=== PATIENT | male | born 1965 | race Two or more races ===

== ENCOUNTER 2019-03-01 17:54 | Inpatient (IN) | payer SELFPAY ==
[~2019-03-01] VITALS: Ht 180.3 cm; Wt 108.2 kg
[2019-03-01] MEDS ORDERED: MECLIZINE HCL 12.5 MG TABLET. PO ONE (20:00)
[2019-03-01] MEDS ORDERED: IV NORMAL SALINE 1000ML BAG 1,000 ML IV ONE (20:00)
[2019-03-01 20:05] LABS: BILIRUBIN,URINE NEGATIVE (NEG); CLARITY,URINE CLOUDY; COLOR,URINE YELLOW; NITRITE,URINE NEGATIVE (NEG); PH,URINE 5.5; PROTEIN,URINE NEGATIVE (NEG-TRACE); UROBILINOGEN,URINE 0.2 mg/dL (0.2 mg/dL)
[2019-03-01 20:14] LABS: BACTERIA,URINE 0 /HPF (0-FEW); RBC,URINE RARE /HPF (0-2); SQUAMOUS EPITHELIAL CELL,UR OCC /LPF; WBC,URINE 20-40 /HPF (0-4)
[2019-03-01 20:27] LABS: CALCIUM 9.2 mg/dL (8.5-10.1); CREATININE 1.8 mg/dL (0.7-1.3); GFR 39.8; POTASSIUM 4.3 mmol/L (3.5-5.1)
[2019-03-01 20:29] LABS: BASO # 0.1 x10^3/uL (0.0-0.2); BASO % 1 % (0-3); EOS # 0.3 x10^3/uL (0.0-0.7); EOS % 3 % (0-3); HEMOGLOBIN 12.6 g/dL (13.0-17.5); LYMPH # 1.6 x10^3/uL (1.0-4.8); LYMPH % 15 % (24-48); MEAN CORPUSCULAR HEMOGLOBIN 28 pg (25-35); MEAN CORPUSCULAR HGB CONC 34 g/dL (31-37); MEAN CORPUSCULAR VOLUME 82 fL (79-100); MONO # 1.2 x10^3/uL (0.0-1.1); MONO % 11 % (0-9); NEUT # 7.9 x10^3uL (1.8-7.7); NEUT % 71 % (31-73); PLATELET COUNT 289 x10^3/uL (140-400); RED CELL DISTRIBUTION WIDTH 14.7 % (11.5-14.5); WHITE BLOOD COUNT 11.1 x10^3/uL (4.0-11.0)
[2019-03-01 20:33] LABS: ALBUMIN 3.2 g/dL (3.4-5.0); ALBUMIN/GLOBULIN RATIO 0.7 (1.0-1.7); TOTAL BILIRUBIN 0.5 mg/dL (0.2-1.0)
--- NOTE | 2019-03-01 20:51 | PHYS DOC ---
Past Medical History Past Medical History: No Pertinent History (NARENDRA MEEHAN APRN) Past Surgical History: No Surgical History (NARENDRA MEEHAN APRN) Alcohol Use: Rarely Drug Use: None (NARENDRA MEEHAN APRN) Adult General Chief Complaint Chief Complaint: URINARY RETENTION HPI HPI Patient is a 53 year old male presents to the ER with dysuria this been ongoing for 2 days. The patient also has multiple other medical complaints. The patient states he has been having headache, abdominal pain, dizziness (he describes the room spinning), has also been running a fever but has been afebrile since Monday, and is also been having bilateral ear ringing. He also states that he's been having urinary retention and states that when he uses the past bathroom it hurts and he feels that he is not getting all of his urine out. States she's having 5 out of 10 pain. No interventions at home except he was placed on amoxicillin. (NARENDRA MEEHAN APRN) Review of Systems Review of Systems Constitutional: Denies fever or chills [] Eyes: Denies change in visual acuity, left eye redness, or eye pain [] HENT: Denies nasal congestion or sore throat [] Respiratory: Denies cough or shortness of breath [] Cardiovascular: No additional information not addressed in HPI [] GI: Reports abdominal pain denies nausea, vomiting, bloody stools or diarrhea [] : Reports urinary retention and dysuria denies hematuria [] Musculoskeletal: Denies back pain or joint pain [] Integument: Denies rash or skin lesions [] Neurologic: Reports headache and dizziness, Denies focal weakness or sensory changes [] Complete systems were reviewed and found to be within normal limits, except as documented in this note. (NARENDRA MEEHAN APRN) Current Medications Current Medications Current Medications Medications (Trade) Dose Ordered Sig/Maria Dolores Start Time Stop Time Status Last Admin Dose Admin Ceftriaxone Sodium (Rocephin) 1 gm 1X ONCE 03/01/19 21:15 03/01/19 21:16 DC 03/01/19 21:21 1 GM Meclizine HCl (Antivert) 25 mg 1X ONCE 03/01/19 20:00 03/01/19 20:04 DC 03/01/19 20:20 25 MG Sodium Chloride 1,000 ml @ 1,000 mls/hr 1X ONCE 03/01/19 20:00 03/01/19 20:59 DC 03/01/19 20:20 1,000 MLS/HR (NARENDRA RIGGS DO) Allergies Allergies Allergies Coded Allergies Type Severity Reaction Last Updated Verified No Known Drug Allergies 03/01/19 No (NARENDRA RIGGS DO) Physical Exam Physical Exam Constitutional: Well developed, well nourished, no acute distress, non-toxic appearance. [] HENT: Normocephalic, atraumatic, bilateral external ears normal, oropharynx moist, no oral exudates, nose normal. [] Eyes: PERRLA, EOMI, conjunctiva in left eye is red, no discharge. [] Neck: Normal range of motion, no tenderness, supple, no stridor. [] Cardiovascular:Heart rate regular rhythm, no murmur [] Lungs & Thorax: Bilateral breath sounds clear to auscultation [] Abdomen: Bowel sounds normal, soft, diffuse tenderness, no masses, no pulsatile masses. [] Skin: Warm, dry, no erythema, no rash. [] Back: No tenderness, no CVA tenderness. [] Extremities: No tenderness, no cyanosis, no clubbing, ROM intact, no edema. [] Neurologic: Alert and oriented X 3, negative romberg test, negative cathi-hallpike test. Psychologic: Affect normal, judgement normal, mood normal. [] (NARENDRA MEEHAN APRN) Current Patient Data Vital Signs Vital Signs Date Time Temp Pulse Resp B/P (MAP) Pulse Ox O2 Delivery O2 Flow Rate FiO2 03/01/19 20:30 68 96 03/01/19 19:15 98.1 16 171/95 (120) Room Air 98.1 (NARENDRA RIGGS DO) Lab Values Laboratory Tests Test 03/01/19 19:37 03/01/19 19:51 White Blood Count 11.1 x10^3/uL (4.0-11.0) H Red Blood Count 4.50 x10^6/uL (4.30-5.70) Hemoglobin 12.6 g/dL (13.0-17.5) L Hematocrit 37.0 % (39.0-53.0) L Mean Corpuscular Volume 82 fL (79-100) Mean Corpuscular Hemoglobin 28 pg (25-35) Mean Corpuscular Hemoglobin Concent 34 g/dL (31-37) Red Cell Distribution Width 14.7 % (11.5-14.5) H Platelet Count 289 x10^3/uL (140-400) Neutrophils (%) (Auto) 71 % (31-73) Lymphocytes (%) (Auto) 15 % (24-48) L Monocytes (%) (Auto) 11 % (0-9) H Eosinophils (%) (Auto) 3 % (0-3) Basophils (%) (Auto) 1 % (0-3) Neutrophils # (Auto) 7.9 x10^3uL (1.8-7.7) H Lymphocytes # (Auto) 1.6 x10^3/uL (1.0-4.8) Monocytes # (Auto) 1.2 x10^3/uL (0.0-1.1) H Eosinophils # (Auto) 0.3 x10^3/uL (0.0-0.7) Basophils # (Auto) 0.1 x10^3/uL (0.0-0.2) Sodium Level 135 mmol/L (136-145) L Potassium Level 4.3 mmol/L (3.5-5.1) Chloride Level 100 mmol/L (98-107) Carbon Dioxide Level 23 mmol/L (21-32) Anion Gap 12 (6-14) Blood Urea Nitrogen 33 mg/dL (8-26) H Creatinine 1.8 mg/dL (0.7-1.3) H Estimated GFR (Cockcroft-Gault) 39.8 BUN/Creatinine Ratio 18 (6-20) Glucose Level 119 mg/dL (70-99) H Calcium Level 9.2 mg/dL (8.5-10.1) Total Bilirubin 0.5 mg/dL (0.2-1.0) Aspartate Amino Transferase (AST) 90 U/L (15-37) H Alanine Aminotransferase (ALT) 113 U/L (16-63) H Alkaline Phosphatase 397 U/L (46-116) H Total Protein 8.0 g/dL (6.4-8.2) Albumin 3.2 g/dL (3.4-5.0) L Albumin/Globulin Ratio 0.7 (1.0-1.7) L Lipase 178 U/L (73-393) Urine Color Yellow Urine Clarity Cloudy Urine pH 5.5 Urine Specific [place] 1.015 Urine Protein Negative mg/dL (NEG-TRACE) Urine Glucose (UA) Negative mg/dL (NEG) Urine Ketones (Stick) Negative mg/dL (NEG) Urine Blood Trace (NEG) Urine Nitrite Negative (NEG) Urine Bilirubin Negative (NEG) Urine Urobilinogen Dipstick 0.2 mg/dL (0.2 mg/dL) Urine Leukocyte Esterase Large (NEG) Urine RBC Rare /HPF (0-2) Urine WBC 20-40 /HPF (0-4) Urine Squamous Epithelial Cells Occ /LPF Urine Bacteria 0 /HPF (0-FEW) Laboratory Tests 03/01/19 19:37 Laboratory Tests 03/01/19 19:37 (NARENDRA RIGGS DO) EKG EKG [] (NARENDRA MEEHAN APRN) Radiology/Procedures Radiology/Procedures PATIENT: AARON CELESTE ACCOUNT: [id number] : 1965 LOCATION: [address] [place] [address] AGE: 53 SEX: M EXAM STATUS: ADM IN ORD. PHYSICIAN: NARENDRA MEEHAN APRN REASON: abd pain, elevated liver enzymes PROCEDURE: ABDOMEN LTD Ultrasound of the right upper quadrant of the abdomen 03/01/2019 CLINICAL HISTORY: Abdominal pain. Elevated liver function tests. TECHNIQUE: A real-time ultrasound examination of the right upper quadrant of the abdomen was performed. Multiple images were obtained. FINDINGS: Comparison is made to the patient's CT scan of the abdomen performed earlier today. The gallbladder is well-distended. No gallstones are visualized. The gallbladder wall thickness is within normal limits. The common bile duct measures 3 mm in diameter which is within normal limits. The liver is mildly enlarged measuring 20 cm in length. Increased echogenicity of the liver parenchyma is seen consistent with fatty infiltration. No focal abnormality of the liver is seen. The visualized portions of pancreas and right kidney are within normal limits. No free fluid is seen. IMPRESSION: Mild hepatomegaly with fatty infiltration of the liver. Otherwise negative study. Electronically signed by: Ken Alfaro MD (03/01/2019 10:58 PM) [facility] [] PATIENT: AARON CELESTE ACCOUNT: [id number] : 1965 LOCATION: ER AGE: 53 SEX: M EXAM STATUS: REG ER ORD. PHYSICIAN: NARENDRA MEEHAN APRN REASON: abd pain, URINARY RETENTION. PROCEDURE: CT ABDOMEN PELVIS WO CONTRAST CT scan of the abdomen and pelvis without contrast 03/01/2019 CLINICAL HISTORY: Abdominal pain. Urinary retention. TECHNIQUE: Unenhanced, contiguous, 5 mm axial sections were obtained through the abdomen and pelvis. One or more of the following individualized dose reduction techniques were utilized for this study: 1. Automated exposure control. 2. Adjustment of the mA and/or kV according to patient size. 3. Use of iterative reconstruction technique. FINDINGS: Images through the lung bases demonstrate minimal dependent subsegmental atelectasis bilaterally. A 3 mm calcified granuloma seen involving the left lower lobe. The liver, spleen, pancreas, and adrenal glands are within normal limits. A 2 mm nonobstructing calculus is seen involving the mid/lower pole of the right kidney. A 1 mm nonobstructing calculus is seen involving the superior pole of the left kidney. No ureteral calculus is seen. There is no evidence of obstruction of either collecting system. The abdominal aorta tapers normally. Mild atherosclerotic calcification of the abdominal aorta is seen. The gallbladder is slightly contracted. No free fluid or free air is seen within the abdomen. There is no evidence of bowel obstruction. The appendix is well-visualized and within normal limits. Images through the pelvis demonstrate a Dang catheter within the urinary bladder which is contracted. The prostate gland is enlarged likely related to BPH. It measures 6.4 x 6.3 x 4.9 cm in transverse, craniocaudal and AP dimensions. No free fluid is seen. Minimal S-shaped curvature of the thoracolumbar spine is noted. Degenerative changes are seen involving the thoracic and throughout the lumbar spine and both hips. IMPRESSION: No acute abnormality is seen. Electronically signed by: Ken Alfaro MD (03/01/2019 9:17 PM) [facility] DICTATED and SIGNED BY: KEN ALFARO MD DATE: 03/01/192116 (NARENDRA MEEHAN APRN) Course & Med Decision Making Course & Med Decision Making Pertinent Labs and Imaging studies reviewed. (See chart for details) Nursing staff bladder scanned the patient and he had a before residual of 215, and then after of 174. Dang placed in patient. The patient is having diffuse abdominal pain. Will get CT, labs, and ultrasound. Creatinine is elevated at 1.8, WBC is slightly elevated at 11,000, Urine shows UTI, liver enzymes are elevated. Will give Rocephin CT scan is unremarkable. Will page Dr. Carter, hospitalist for admission. Discussed admission with Dr. Carter around 9:30 PM. He agreed to admission. (NARENDRA MEEHAN APRN) Dragon Disclaimer Dragon Disclaimer This electronic medical record was generated, in whole or in part, using a voice recognition dictation system. (NARENDRA MEEHAN APRN) Departure Departure Impression: Primary Impression: MUSTAPHA (acute kidney injury) Additional Impressions: Urinary tract infection Elevated liver enzymes Dizziness Urinary retention Disposition: ADMITTED INPATIENT Admitting Physician: HÉCTOR (NARENDRA MEEHAN APRN) Condition: STABLE Referrals: UNKNOWN PCP NAME (PCP) Attending Signature Attending Signature I have reviewed the PA/CHIP SILO TENDER's note and plan of care. I was available for consultation as needed during the patient's visit in the emergency department. I agree with the clinical impression, plan, and disposition. (NARENDRA RIGGS DO) Problem Qualifiers Additional Impressions: Urinary tract infection Urinary tract infection type: acute cystitis Hematuria presence: without hematuria Qualified Codes: N30.00 - Acute cystitis without hematuria NARENDRA MEEHAN APRN Mar 01, 2019 20:51 NARENDRA RIGGS DO Mar 03, 2019 05:20
[2019-03-01] MEDS ORDERED: cefTRIAXone IV Push 1 GM VIAL. IVP ONE (21:15)
--- NOTE | 2019-03-01 21:20 | RAD ---
CT scan of the abdomen and pelvis without contrast 03/01/2019 CLINICAL HISTORY: Abdominal pain. Urinary retention. TECHNIQUE: Unenhanced, contiguous, 5 mm axial sections were obtained through the abdomen and pelvis. One or more of the following individualized dose reduction techniques were utilized for this study: 1. Automated exposure control. 2. Adjustment of the mA and/or kV according to patient size. 3. Use of iterative reconstruction technique. FINDINGS: Images through the lung bases demonstrate minimal dependent subsegmental atelectasis bilaterally. A 3 mm calcified granuloma seen involving the left lower lobe. The liver, spleen, pancreas, and adrenal glands are within normal limits. A 2 mm nonobstructing calculus is seen involving the mid/lower pole of the right kidney. A 1 mm nonobstructing calculus is seen involving the superior pole of the left kidney. No ureteral calculus is seen. There is no evidence of obstruction of either collecting system. The abdominal aorta tapers normally. Mild atherosclerotic calcification of the abdominal aorta is seen. The gallbladder is slightly contracted. No free fluid or free air is seen within the abdomen. There is no evidence of bowel obstruction. The appendix is well-visualized and within normal limits. Images through the pelvis demonstrate a Dang catheter within the urinary bladder which is contracted. The prostate gland is enlarged likely related to BPH. It measures 6.4 x 6.3 x 4.9 cm in transverse, craniocaudal and AP dimensions. No free fluid is seen. Minimal S-shaped curvature of the thoracolumbar spine is noted. Degenerative changes are seen involving the thoracic and throughout the lumbar spine and both hips. IMPRESSION: No acute abnormality is seen. Electronically signed by: Ken Alfaro MD (03/01/2019 9:17 PM) [facility]
[2019-03-01] MEDS ORDERED: ONDANSETRON PF 4 MG/2 ML VIAL. IV PRN (21:45)
[2019-03-01] MEDS ORDERED: MORPHINE SULFATE 2 MG/ML VIAL. IV PRN (21:45)
[2019-03-01] MEDS ORDERED: ONDANSETRON PF 4 MG/2 ML VIAL. IV ONE (22:00)
--- NOTE | 2019-03-01 23:01 | RAD ---
Ultrasound of the right upper quadrant of the abdomen 03/01/2019 CLINICAL HISTORY: Abdominal pain. Elevated liver function tests. TECHNIQUE: A real-time ultrasound examination of the right upper quadrant of the abdomen was performed. Multiple images were obtained. FINDINGS: Comparison is made to the patient's CT scan of the abdomen performed earlier today. The gallbladder is well-distended. No gallstones are visualized. The gallbladder wall thickness is within normal limits. The common bile duct measures 3 mm in diameter which is within normal limits. The liver is mildly enlarged measuring 20 cm in length. Increased echogenicity of the liver parenchyma is seen consistent with fatty infiltration. No focal abnormality of the liver is seen. The visualized portions of pancreas and right kidney are within normal limits. No free fluid is seen. IMPRESSION: Mild hepatomegaly with fatty infiltration of the liver. Otherwise negative study. Electronically signed by: Ken Alfaro MD (03/01/2019 10:58 PM) [facility]
[2019-03-01 23:03] VITALS: BP 137/81
[2019-03-02 03:00] VITALS: BP 134/86
[2019-03-02] MEDS: IV NORMAL SALINE 1000ML BAG 1,000 ML IV SCH ×2 (06:10→16:23)
[2019-03-02 07:00] VITALS: BP 118/78
--- NOTE | 2019-03-02 10:52 | PDOC1 ---
History and Physical Date of Admission Date of Admission DATE: 03/02/19 TIME: 10:52 Identification/Chief Complaint Chief Complaint seen in er presented to the ER with dysuria this been ongoing for 2 days. The patient also has multiple other medical complaints. he has been having headache, abdominal pain, dizziness (he describes the room spinning), has also been running a fever but has been afebrile since Monday, and is also been having bilateral ear ringing. He also states that he's been having urinary retention and states that when he uses the past bathroom it hurts and he feels that he is not getting all of his urine out. States she's having 5 out of 10 pain. Past Medical History Past Medical History Past Medical History Past Medical History: No Pertinent History Past Surgical History: No Surgical History Alcohol Use: Rarely Drug Use: None family hx obesity Cardiovascular: Hyperlipidemia Family History Family History: High Cholestrol Social History Smoke: No ALCOHOL: none Drugs: None Current Problem List Problem List Problems Medical Problems: (1) MUSTAPHA (acute kidney injury) Status: Acute (2) Dizziness Status: Acute (3) Elevated liver enzymes Status: Acute (4) Urinary retention Status: Acute (5) Urinary tract infection Status: Acute Current Medications Current Medications Current Medications Sodium Chloride 1,000 ml @ 1,000 mls/hr 1X ONCE IV Last administered on 03/01/19at 20:20; Start 03/01/19 at 20:00; Stop 03/01/19 at 20:59; Status DC Meclizine HCl (Antivert) 25 mg 1X ONCE PO Last administered on 03/01/19at 20:20; Start 03/01/19 at 20:00; Stop 03/01/19 at 20:04; Status DC Ceftriaxone Sodium (Rocephin) 1 gm 1X ONCE IVP Last administered on 03/01/19at 21:21; Start 03/01/19 at 21:15; Stop 03/01/19 at 21:16; Status DC Ondansetron HCl (Zofran) 4 mg 1X ONCE IV Last administered on 03/01/19at 21:30; Start 03/01/19 at 22:00; Stop 03/01/19 at 22:01; Status DC Ondansetron HCl (Zofran) 4 mg PRN Q8HRS PRN IV NAUSEA/VOMITING 1ST CHOICE; Start 03/01/19 at 21:45; Stop 03/02/19 at 21:44 Morphine Sulfate (Morphine Sulfate) 2 mg PRN Q2HR PRN IV SEVERE PAIN; Start 03/01/19 at 21:45; Stop 03/02/19 at 21:44 Sodium Chloride 1,000 ml @ 100 mls/hr Q10H IV Last administered on 03/02/19at 06:10; Start 03/02/19 at 06:00 Allergies Allergies: Coded Allergies: No Known Drug Allergies (Unverified , 03/01/19) ROS Review of System Review of Systems Review of Systems Constitutional: Denies fever or chills [] Eyes: Denies change in visual acuity, left eye redness, or eye pain [] HENT: Denies nasal congestion or sore throat [] Respiratory: Denies cough or shortness of breath [] Cardiovascular: No additional information not addressed in HPI [] GI: Reports abdominal pain denies nausea, vomiting, bloody stools or diarrhea [] : Reports urinary retention and dysuria denies hematuria [] Musculoskeletal: Denies back pain or joint pain [] Integument: Denies rash or skin lesions [] Neurologic: Reports headache and dizziness, Denies focal weakness or sensory changes [] 14 pt systems were reviewed and found to be within normal limits, except as documented . Physical Exam Physical Exam Physical Exam Physical Exam Constitutional: Well developed, well nourished, no acute distress, non-toxic appearance. [] HENT: Normocephalic, atraumatic, bilateral external ears normal, oropharynx moist, no oral exudates, nose normal. [] Eyes: PERRLA, EOMI, conjunctiva in left eye is red, no discharge. [] Neck: Normal range of motion, no tenderness, supple, no stridor. [] Cardiovascular:Heart rate regular rhythm, no murmur [] Lungs & Thorax: Bilateral breath sounds clear to auscultation [] Abdomen: Bowel sounds normal, soft, diffuse tenderness, no masses, no pulsatile masses. [] Skin: Warm, dry, no erythema, no rash. [] Back: No tenderness, no CVA tenderness. [] Extremities: No tenderness, no cyanosis, no clubbing, ROM intact, no edema. [] Neurologic: Alert and oriented X 3, negative romberg test, negative cathi-hallpike test. Psychologic: Affect normal, judgement normal, mood normal. [] General: Alert, Oriented X3, Cooperative, No acute distress HEENT: EOMI, Mucous membr. moist/pink Lungs: Clear to auscultation Breasts: Not examined Abdomen: Normal bowel sounds, Soft, No tenderness Rectal Exam: not examined Extremities: No cyanosis Neuro: Normal speech, Strength at 5/5 X4 ext, Cranial nerves 3-12 NL Psych/Mental Status: Mental status NL, Mood NL Vitals Vitals Vital Signs Date Time Temp Pulse Resp B/P (MAP) Pulse Ox O2 Delivery O2 Flow Rate FiO2 03/02/19 08:00 Room Air 03/02/19 07:00 98.1 84 17 118/78 (91) 96 98.1 Labs Labs Laboratory Tests Test 03/01/19 19:37 03/01/19 19:51 White Blood Count 11.1 x10^3/uL (4.0-11.0) Red Blood Count 4.50 x10^6/uL (4.30-5.70) Hemoglobin 12.6 g/dL (13.0-17.5) Hematocrit 37.0 % (39.0-53.0) Mean Corpuscular Volume 82 fL (79-100) Mean Corpuscular Hemoglobin 28 pg (25-35) Mean Corpuscular Hemoglobin Concent 34 g/dL (31-37) Red Cell Distribution Width 14.7 % (11.5-14.5) Platelet Count 289 x10^3/uL (140-400) Neutrophils (%) (Auto) 71 % (31-73) Lymphocytes (%) (Auto) 15 % (24-48) Monocytes (%) (Auto) 11 % (0-9) Eosinophils (%) (Auto) 3 % (0-3) Basophils (%) (Auto) 1 % (0-3) Neutrophils # (Auto) 7.9 x10^3uL (1.8-7.7) Lymphocytes # (Auto) 1.6 x10^3/uL (1.0-4.8) Monocytes # (Auto) 1.2 x10^3/uL (0.0-1.1) Eosinophils # (Auto) 0.3 x10^3/uL (0.0-0.7) Basophils # (Auto) 0.1 x10^3/uL (0.0-0.2) Sodium Level 135 mmol/L (136-145) Potassium Level 4.3 mmol/L (3.5-5.1) Chloride Level 100 mmol/L (98-107) Carbon Dioxide Level 23 mmol/L (21-32) Anion Gap 12 (6-14) Blood Urea Nitrogen 33 mg/dL (8-26) Creatinine 1.8 mg/dL (0.7-1.3) Estimated GFR (Cockcroft-Gault) 39.8 BUN/Creatinine Ratio 18 (6-20) Glucose Level 119 mg/dL (70-99) Calcium Level 9.2 mg/dL (8.5-10.1) Total Bilirubin 0.5 mg/dL (0.2-1.0) Aspartate Amino Transf (AST/SGOT) 90 U/L (15-37) Alanine Aminotransferase (ALT/SGPT) 113 U/L (16-63) Alkaline Phosphatase 397 U/L (46-116) Total Protein 8.0 g/dL (6.4-8.2) Albumin 3.2 g/dL (3.4-5.0) Albumin/Globulin Ratio 0.7 (1.0-1.7) Lipase 178 U/L (73-393) Urine Color Yellow Urine Clarity Cloudy Urine pH 5.5 Urine Specific [place] 1.015 Urine Protein Negative mg/dL (NEG-TRACE) Urine Glucose (UA) Negative mg/dL (NEG) Urine Ketones (Stick) Negative mg/dL (NEG) Urine Blood Trace (NEG) Urine Nitrite Negative (NEG) Urine Bilirubin Negative (NEG) Urine Urobilinogen Dipstick 0.2 mg/dL (0.2 mg/dL) Urine Leukocyte Esterase Large (NEG) Urine RBC Rare /HPF (0-2) Urine WBC 20-40 /HPF (0-4) Urine Squamous Epithelial Cells Occ /LPF Urine Bacteria 0 /HPF (0-FEW) Laboratory Tests Test 03/01/19 19:37 03/01/19 19:51 White Blood Count 11.1 x10^3/uL (4.0-11.0) Red Blood Count 4.50 x10^6/uL (4.30-5.70) Hemoglobin 12.6 g/dL (13.0-17.5) Hematocrit 37.0 % (39.0-53.0) Mean Corpuscular Volume 82 fL (79-100) Mean Corpuscular Hemoglobin 28 pg (25-35) Mean Corpuscular Hemoglobin Concent 34 g/dL (31-37) Red Cell Distribution Width 14.7 % (11.5-14.5) Platelet Count 289 x10^3/uL (140-400) Neutrophils (%) (Auto) 71 % (31-73) Lymphocytes (%) (Auto) 15 % (24-48) Monocytes (%) (Auto) 11 % (0-9) Eosinophils (%) (Auto) 3 % (0-3) Basophils (%) (Auto) 1 % (0-3) Neutrophils # (Auto) 7.9 x10^3uL (1.8-7.7) Lymphocytes # (Auto) 1.6 x10^3/uL (1.0-4.8) Monocytes # (Auto) 1.2 x10^3/uL (0.0-1.1) Eosinophils # (Auto) 0.3 x10^3/uL (0.0-0.7) Basophils # (Auto) 0.1 x10^3/uL (0.0-0.2) Sodium Level 135 mmol/L (136-145) Potassium Level 4.3 mmol/L (3.5-5.1) Chloride Level 100 mmol/L (98-107) Carbon Dioxide Level 23 mmol/L (21-32) Anion Gap 12 (6-14) Blood Urea Nitrogen 33 mg/dL (8-26) Creatinine 1.8 mg/dL (0.7-1.3) Estimated GFR (Cockcroft-Gault) 39.8 BUN/Creatinine Ratio 18 (6-20) Glucose Level 119 mg/dL (70-99) Calcium Level 9.2 mg/dL (8.5-10.1) Total Bilirubin 0.5 mg/dL (0.2-1.0) Aspartate Amino Transf (AST/SGOT) 90 U/L (15-37) Alanine Aminotransferase (ALT/SGPT) 113 U/L (16-63) Alkaline Phosphatase 397 U/L (46-116) Total Protein 8.0 g/dL (6.4-8.2) Albumin 3.2 g/dL (3.4-5.0) Albumin/Globulin Ratio 0.7 (1.0-1.7) Lipase 178 U/L (73-393) Urine Color Yellow Urine Clarity Cloudy Urine pH 5.5 Urine Specific [place] 1.015 Urine Protein Negative mg/dL (NEG-TRACE) Urine Glucose (UA) Negative mg/dL (NEG) Urine Ketones (Stick) Negative mg/dL (NEG) Urine Blood Trace (NEG) Urine Nitrite Negative (NEG) Urine Bilirubin Negative (NEG) Urine Urobilinogen Dipstick 0.2 mg/dL (0.2 mg/dL) Urine Leukocyte Esterase Large (NEG) Urine RBC Rare /HPF (0-2) Urine WBC 20-40 /HPF (0-4) Urine Squamous Epithelial Cells Occ /LPF Urine Bacteria 0 /HPF (0-FEW) Images Images REASON: abd pain, elevated liver enzymes PROCEDURE: ABDOMEN LTD Ultrasound of the right upper quadrant of the abdomen 03/01/2019 CLINICAL HISTORY: Abdominal pain. Elevated liver function tests. TECHNIQUE: A real-time ultrasound examination of the right upper quadrant of the abdomen was performed. Multiple images were obtained. FINDINGS: Comparison is made to the patient's CT scan of the abdomen performed earlier today. The gallbladder is well-distended. No gallstones are visualized. The gallbladder wall thickness is within normal limits. The common bile duct measures 3 mm in diameter which is within normal limits. The liver is mildly enlarged measuring 20 cm in length. Increased echogenicity of the liver parenchyma is seen consistent with fatty infiltration. No focal abnormality of the liver is seen. The visualized portions of pancreas and right kidney are within normal limits. No free fluid is seen. IMPRESSION: Mild hepatomegaly with fatty infiltration of the liver. Otherwise negative study. Electronically signed by: Ken Alfaro MD (03/01/2019 10:58 PM) [facility] CT scan of the abdomen and pelvis without contrast 03/01/2019 CLINICAL HISTORY: Abdominal pain. Urinary retention. TECHNIQUE: Unenhanced, contiguous, 5 mm axial sections were obtained through the abdomen and pelvis. One or more of the following individualized dose reduction techniques were utilized for this study: 1. Automated exposure control. 2. Adjustment of the mA and/or kV according to patient size. 3. Use of iterative reconstruction technique. FINDINGS: Images through the lung bases demonstrate minimal dependent subsegmental atelectasis bilaterally. A 3 mm calcified granuloma seen involving the left lower lobe. The liver, spleen, pancreas, and adrenal glands are within normal limits. A 2 mm nonobstructing calculus is seen involving the mid/lower pole of the right kidney. A 1 mm nonobstructing calculus is seen involving the superior pole of the left kidney. No ureteral calculus is seen. There is no evidence of obstruction of either collecting system. The abdominal aorta tapers normally. Mild atherosclerotic calcification of the abdominal aorta is seen. The gallbladder is slightly contracted. No free fluid or free air is seen within the abdomen. There is no evidence of bowel obstruction. The appendix is well-visualized and within normal limits. Images through the pelvis demonstrate a Vaughan catheter within the urinary bladder which is contracted. The prostate gland is enlarged likely related to BPH. It measures 6.4 x 6.3 x 4.9 cm in transverse, craniocaudal and AP dimensions. No free fluid is seen. Minimal S-shaped curvature of the thoracolumbar spine is noted. Degenerative changes are seen involving the thoracic and throughout the lumbar spine and both hips. IMPRESSION: No acute abnormality is seen. Electronically signed by: Ken Alfaro MD (03/01/2019 9:17 PM) [facility] VTE Prophylaxis Ordered VTE Prophylaxis Devices: Yes VTE Pharmacological Prophylaxi: Yes Assessment/Plan Assessment/Plan impression urinary retention the prostate gland is enlarged likely related to BPH. It measures 6.4 x 6.3 x 4.9 cm in transverse, craniocaudal and AP dimensions. transaminitis Mild hepatomegaly with fatty infiltration of the liver. headache resolved hypertension morbid obesity UTI plan IV ROCEPHIN 1 GM Q 24 HRS admit vaughan placed urology consult hepatitis acute viral screen, acute hold statins 76 min pt exam, chart review, > 50% of time spent with exam, chart review, pt care coordination TI FARRAR MD Mar 02, 2019 10:52
[2019-03-02 11:00] VITALS: BP 136/85
[2019-03-02] MEDS ORDERED: LISI-334 PO (13:22)
[2019-03-02] MEDS ORDERED: SIMV20TA3 PO (13:22)
[2019-03-02 15:00] VITALS: BP 140/90
--- NOTE | 2019-03-02 15:48 | PDOC2 ---
UROLOGY CONSULT Date of Consult Date of Consult DATE: 03/02/19 TIME: 15:43 Reason for Consult Reason for Consult: urinary retention, UTI Identification/Chief Complaint Chief Complaint dysuria, abdominal pain Source Source: Chart review, Patient History of Present Illness Reason for Visit: 53 yo danish speaking male, presented to ER 03/02/19 with dysuria, abdominal pain, dizziness, worsening over the past 3-5 days. He reports fever 3 days ago but none since. UA consistent with UTI. He denies previous UTIs. He reports slow urinary stream but not very bothersome. Dang placed in ER, residual 170 ml. No prior BPH diagnosis. He reports PSA of 2.5 in [place] in late 2018. CT this admission: prostate measures 103 gm. Past Medical History Cardiovascular: Hyperlipidemia Family History Family History: High Cholestrol Social History No ALCOHOL: none Drugs: None Current Medications Current Medications Current Medications Ceftriaxone Sodium (Rocephin) 1 gm 1X ONCE IVP Last administered on 03/01/19at 21:21; Start 03/01/19 at 21:15; Stop 03/01/19 at 21:16; Status DC Ceftriaxone Sodium (Rocephin) 1 gm Q24H IVP ; Start 03/02/19 at 21:00 Lisinopril (Prinivil) 20 mg DAILY PO ; Start 03/02/19 at 14:00 Meclizine HCl (Antivert) 25 mg 1X ONCE PO Last administered on 03/01/19at 20:20; Start 03/01/19 at 20:00; Stop 03/01/19 at 20:04; Status DC Morphine Sulfate (Morphine Sulfate) 2 mg PRN Q2HR PRN IV SEVERE PAIN; Start 03/01/19 at 21:45; Stop 03/02/19 at 21:44 Ondansetron HCl (Zofran) 4 mg 1X ONCE IV Last administered on 03/01/19at 21:30; Start 03/01/19 at 22:00; Stop 03/01/19 at 22:01; Status DC Ondansetron HCl (Zofran) 4 mg PRN Q8HRS PRN IV NAUSEA/VOMITING 1ST CHOICE; Start 03/01/19 at 21:45; Stop 03/02/19 at 21:44 Simvastatin (Zocor) 20 mg HS PO ; Start 03/02/19 at 21:00 Sodium Chloride 1,000 ml @ 100 mls/hr Q10H IV Last administered on 03/02/19at 06:10; Start 03/02/19 at 06:00 Sodium Chloride 1,000 ml @ 1,000 mls/hr 1X ONCE IV Last administered on 03/01/19at 20:20; Start 03/01/19 at 20:00; Stop 03/01/19 at 20:59; Status DC Allergies Allergies: Coded Allergies: No Known Drug Allergies (Unverified , 03/01/19) ROS Review Of Systems: Except as noted in HPI: CONSTITUTIONAL: No fever or chills EYES: No recent changes SKIN: No rash or itching CARDIOVASCULAR: No chest pain, syncope, palpitations, or edema RESPIRATORY: No SOB or cough GASTROINTESTINAL: No nausea, vomiting or abdominal pain NEUROLOGICAL: No headaches or weakness ENDOCRINE: No cold or heat intolerance GENITOURINARY: No urgency or frequency of urination MUSCULOSKELETAL: No back pain or joint pain LYMPHATICS: No enlarged lymph nodes PSYCHIATRIC: No anxiety or depression Physical Exam Physical Exam: General: Pleasant, no acute distress, well groomed Eyes: conjunctiva anicteric, eyes full range of motion ENT: moist oral mucosa, normal dentition Neck: Trachea midline, no masses Respiratory: unlabored breathing, not using accessory muscles, no crackles or wheezes Cardiovascular: Regular rate and rhythm, no peripheral edema Abdomen: nontender, nondistended, no hepatosplenomegaly, no masses Skin: no rashes or skin lesions on visualized skin Psych: normal mood, affect. Alert and oriented x 3. : prostate 60 gm+, no tenderness or nodules Vitals VITALS Vital Signs Date Time Temp Pulse Resp B/P (MAP) Pulse Ox O2 Delivery O2 Flow Rate FiO2 03/02/19 11:00 98.8 72 17 136/85 (102) 94 Room Air 98.8 Labs Labs Laboratory Tests Test 03/01/19 19:37 03/01/19 19:51 White Blood Count 11.1 x10^3/uL (4.0-11.0) Red Blood Count 4.50 x10^6/uL (4.30-5.70) Hemoglobin 12.6 g/dL (13.0-17.5) Hematocrit 37.0 % (39.0-53.0) Mean Corpuscular Volume 82 fL (79-100) Mean Corpuscular Hemoglobin 28 pg (25-35) Mean Corpuscular Hemoglobin Concent 34 g/dL (31-37) Red Cell Distribution Width 14.7 % (11.5-14.5) Platelet Count 289 x10^3/uL (140-400) Neutrophils (%) (Auto) 71 % (31-73) Lymphocytes (%) (Auto) 15 % (24-48) Monocytes (%) (Auto) 11 % (0-9) Eosinophils (%) (Auto) 3 % (0-3) Basophils (%) (Auto) 1 % (0-3) Neutrophils # (Auto) 7.9 x10^3uL (1.8-7.7) Lymphocytes # (Auto) 1.6 x10^3/uL (1.0-4.8) Monocytes # (Auto) 1.2 x10^3/uL (0.0-1.1) Eosinophils # (Auto) 0.3 x10^3/uL (0.0-0.7) Basophils # (Auto) 0.1 x10^3/uL (0.0-0.2) Sodium Level 135 mmol/L (136-145) Potassium Level 4.3 mmol/L (3.5-5.1) Chloride Level 100 mmol/L (98-107) Carbon Dioxide Level 23 mmol/L (21-32) Anion Gap 12 (6-14) Blood Urea Nitrogen 33 mg/dL (8-26) Creatinine 1.8 mg/dL (0.7-1.3) Estimated GFR (Cockcroft-Gault) 39.8 BUN/Creatinine Ratio 18 (6-20) Glucose Level 119 mg/dL (70-99) Calcium Level 9.2 mg/dL (8.5-10.1) Total Bilirubin 0.5 mg/dL (0.2-1.0) Aspartate Amino Transf (AST/SGOT) 90 U/L (15-37) Alanine Aminotransferase (ALT/SGPT) 113 U/L (16-63) Alkaline Phosphatase 397 U/L (46-116) Total Protein 8.0 g/dL (6.4-8.2) Albumin 3.2 g/dL (3.4-5.0) Albumin/Globulin Ratio 0.7 (1.0-1.7) Lipase 178 U/L (73-393) Urine Color Yellow Urine Clarity Cloudy Urine pH 5.5 Urine Specific [place] 1.015 Urine Protein Negative mg/dL (NEG-TRACE) Urine Glucose (UA) Negative mg/dL (NEG) Urine Ketones (Stick) Negative mg/dL (NEG) Urine Blood Trace (NEG) Urine Nitrite Negative (NEG) Urine Bilirubin Negative (NEG) Urine Urobilinogen Dipstick 0.2 mg/dL (0.2 mg/dL) Urine Leukocyte Esterase Large (NEG) Urine RBC Rare /HPF (0-2) Urine WBC 20-40 /HPF (0-4) Urine Squamous Epithelial Cells Occ /LPF Urine Bacteria 0 /HPF (0-FEW) Laboratory Tests Test 03/01/19 19:37 03/01/19 19:51 White Blood Count 11.1 x10^3/uL (4.0-11.0) Red Blood Count 4.50 x10^6/uL (4.30-5.70) Hemoglobin 12.6 g/dL (13.0-17.5) Hematocrit 37.0 % (39.0-53.0) Mean Corpuscular Volume 82 fL (79-100) Mean Corpuscular Hemoglobin 28 pg (25-35) Mean Corpuscular Hemoglobin Concent 34 g/dL (31-37) Red Cell Distribution Width 14.7 % (11.5-14.5) Platelet Count 289 x10^3/uL (140-400) Neutrophils (%) (Auto) 71 % (31-73) Lymphocytes (%) (Auto) 15 % (24-48) Monocytes (%) (Auto) 11 % (0-9) Eosinophils (%) (Auto) 3 % (0-3) Basophils (%) (Auto) 1 % (0-3) Neutrophils # (Auto) 7.9 x10^3uL (1.8-7.7) Lymphocytes # (Auto) 1.6 x10^3/uL (1.0-4.8) Monocytes # (Auto) 1.2 x10^3/uL (0.0-1.1) Eosinophils # (Auto) 0.3 x10^3/uL (0.0-0.7) Basophils # (Auto) 0.1 x10^3/uL (0.0-0.2) Sodium Level 135 mmol/L (136-145) Potassium Level 4.3 mmol/L (3.5-5.1) Chloride Level 100 mmol/L (98-107) Carbon Dioxide Level 23 mmol/L (21-32) Anion Gap 12 (6-14) Blood Urea Nitrogen 33 mg/dL (8-26) Creatinine 1.8 mg/dL (0.7-1.3) Estimated GFR (Cockcroft-Gault) 39.8 BUN/Creatinine Ratio 18 (6-20) Glucose Level 119 mg/dL (70-99) Calcium Level 9.2 mg/dL (8.5-10.1) Total Bilirubin 0.5 mg/dL (0.2-1.0) Aspartate Amino Transf (AST/SGOT) 90 U/L (15-37) Alanine Aminotransferase (ALT/SGPT) 113 U/L (16-63) Alkaline Phosphatase 397 U/L (46-116) Total Protein 8.0 g/dL (6.4-8.2) Albumin 3.2 g/dL (3.4-5.0) Albumin/Globulin Ratio 0.7 (1.0-1.7) Lipase 178 U/L (73-393) Urine Color Yellow Urine Clarity Cloudy Urine pH 5.5 Urine Specific [place] 1.015 Urine Protein Negative mg/dL (NEG-TRACE) Urine Glucose (UA) Negative mg/dL (NEG) Urine Ketones (Stick) Negative mg/dL (NEG) Urine Blood Trace (NEG) Urine Nitrite Negative (NEG) Urine Bilirubin Negative (NEG) Urine Urobilinogen Dipstick 0.2 mg/dL (0.2 mg/dL) Urine Leukocyte Esterase Large (NEG) Urine RBC Rare /HPF (0-2) Urine WBC 20-40 /HPF (0-4) Urine Squamous Epithelial Cells Occ /LPF Urine Bacteria 0 /HPF (0-FEW) Assessment/Plan Assessment/Plan BPH: start Flomax. PVR not significantly elevated, attempt voiding trial on 03/03 Needs to continue Flomax 0.4 mg daily as outpatient. UTI: treatment per primary team. urine culture pending? MICH LYNN MD Mar 02, 2019 15:48
[2019-03-02] MEDS: LISINOPRIL 20 MG TABLET PO SCH (16:22)
[2019-03-02 18:07] LABS: BASO # 0.1 x10^3/uL (0.0-0.2); BASO % 1 % (0-3); EOS # 0.2 x10^3/uL (0.0-0.7); EOS % 2 % (0-3); HEMATOCRIT 35.7 % (39.0-53.0); HEMOGLOBIN 12.2 g/dL (13.0-17.5); LYMPH # 1.8 x10^3/uL (1.0-4.8); LYMPH % 17 % (24-48); MEAN CORPUSCULAR HEMOGLOBIN 28 pg (25-35); MEAN CORPUSCULAR HGB CONC 34 g/dL (31-37); MEAN CORPUSCULAR VOLUME 83 fL (79-100); MONO % 9 % (0-9); NEUT # 7.8 x10^3uL (1.8-7.7); NEUT % 72 % (31-73); PLATELET COUNT 292 x10^3/uL (140-400); RED CELL DISTRIBUTION WIDTH 14.8 % (11.5-14.5); WHITE BLOOD COUNT 10.8 x10^3/uL (4.0-11.0)
[2019-03-02 18:25] LABS: ALBUMIN 2.9 g/dL (3.4-5.0); ALBUMIN/GLOBULIN RATIO 0.6 (1.0-1.7); CALCIUM 8.7 mg/dL (8.5-10.1); CREATININE 1.6 mg/dL (0.7-1.3); GFR 45.6; POTASSIUM 4.1 mmol/L (3.5-5.1); TOTAL BILIRUBIN 0.5 mg/dL (0.2-1.0); TOTAL PROTEIN 7.4 g/dL (6.4-8.2)
[2019-03-02 19:39] VITALS: BP 138/77
[2019-03-02] MEDS: TAMSULOSIN 0.4 MG CAP.ER.24H. PO SCH (21:10)
[2019-03-02] MEDS: LACTOBACILLUS RHAMNOSUS GG 1 CAPSULE. PO SCH (21:10)
[2019-03-02] MEDS: SIMVASTATIN 20 MG TABLET PO SCH (21:10)
[2019-03-02] MEDS: cefTRIAXone IV Push 1 GM VIAL. IVP SCH (21:11)
[2019-03-02 23:45] VITALS: BP 133/88
[2019-03-03] VITALS (7 sets, daily range): BP systolic 98–157; BP diastolic 12–107
[2019-03-03] MEDS: IV NORMAL SALINE 1000ML BAG 1,000 ML IV SCH ×3 (01:56→21:14)
[2019-03-03] MEDS: LACTOBACILLUS RHAMNOSUS GG 1 CAPSULE. PO SCH ×2 (09:09→21:08)
[2019-03-03] MEDS: LISINOPRIL 20 MG TABLET PO SCH (09:09)
--- NOTE | 2019-03-03 10:53 | PDOC ---
PROGRESS NOTES History of Present Illness History of Present Illness VTE Prophylaxis Ordered VTE Prophylaxis Devices: Yes VTE Pharmacological Prophylaxi: Yes Assessment/Plan Assessment/Plan impression urinary retention the prostate gland is enlarged likely related to BPH. It measures 6.4 x 6.3 x 4.9 cm in transverse, craniocaudal and AP dimensions. transaminitis Mild hepatomegaly with fatty infiltration of the liver. headache resolved hypertension morbid obesity UTI plan IV ROCEPHIN 1 GM Q 24 HRS admit vaughan placed urology consult hepatitis acute viral screen, acute hold statins 39 min pt exam, chart review, > 50% of time spent with exam, chart review, pt care coordination Vitals Vitals Vital Signs Date Time Temp Pulse Resp B/P (MAP) Pulse Ox O2 Delivery O2 Flow Rate FiO2 03/03/19 09:09 65 114/71 03/03/19 07:00 99.2 12 96 Room Air 99.2 Physical Exam General: Alert, Oriented X3, Cooperative, No acute distress Heart: Regular rate Lungs: Clear Abdomen: Normal bowel sounds, Soft, No tenderness Extremities: No cyanosis, No edema Skin: No significant lesion Labs LABS Laboratory Tests Test 03/02/19 17:10 White Blood Count 10.8 x10^3/uL (4.0-11.0) Red Blood Count 4.30 x10^6/uL (4.30-5.70) Hemoglobin 12.2 g/dL (13.0-17.5) Hematocrit 35.7 % (39.0-53.0) Mean Corpuscular Volume 83 fL (79-100) Mean Corpuscular Hemoglobin 28 pg (25-35) Mean Corpuscular Hemoglobin Concent 34 g/dL (31-37) Red Cell Distribution Width 14.8 % (11.5-14.5) Platelet Count 292 x10^3/uL (140-400) Neutrophils (%) (Auto) 72 % (31-73) Lymphocytes (%) (Auto) 17 % (24-48) Monocytes (%) (Auto) 9 % (0-9) Eosinophils (%) (Auto) 2 % (0-3) Basophils (%) (Auto) 1 % (0-3) Neutrophils # (Auto) 7.8 x10^3uL (1.8-7.7) Lymphocytes # (Auto) 1.8 x10^3/uL (1.0-4.8) Monocytes # (Auto) 1.0 x10^3/uL (0.0-1.1) Eosinophils # (Auto) 0.2 x10^3/uL (0.0-0.7) Basophils # (Auto) 0.1 x10^3/uL (0.0-0.2) Sodium Level 136 mmol/L (136-145) Potassium Level 4.1 mmol/L (3.5-5.1) Chloride Level 102 mmol/L (98-107) Carbon Dioxide Level 25 mmol/L (21-32) Anion Gap 9 (6-14) Blood Urea Nitrogen 26 mg/dL (8-26) Creatinine 1.6 mg/dL (0.7-1.3) Estimated GFR (Cockcroft-Gault) 45.6 BUN/Creatinine Ratio 16 (6-20) Glucose Level 151 mg/dL (70-99) Calcium Level 8.7 mg/dL (8.5-10.1) Total Bilirubin 0.5 mg/dL (0.2-1.0) Aspartate Amino Transf (AST/SGOT) 159 U/L (15-37) Alanine Aminotransferase (ALT/SGPT) 201 U/L (16-63) Alkaline Phosphatase 371 U/L (46-116) Total Protein 7.4 g/dL (6.4-8.2) Albumin 2.9 g/dL (3.4-5.0) Albumin/Globulin Ratio 0.6 (1.0-1.7) Assessment and Plan Assessmemt and Plan Problems Medical Problems: (1) MUSTAPHA (acute kidney injury) Status: Acute (2) Dizziness Status: Acute (3) Elevated liver enzymes Status: Acute (4) Urinary retention Status: Acute (5) Urinary tract infection Status: Acute Comment Review of Relevant I have reviewed the following items faheem (where applicable) has been applied. Labs Laboratory Tests Test 03/01/19 19:37 03/01/19 19:51 03/02/19 17:10 White Blood Count 11.1 x10^3/uL (4.0-11.0) 10.8 x10^3/uL (4.0-11.0) Red Blood Count 4.50 x10^6/uL (4.30-5.70) 4.30 x10^6/uL (4.30-5.70) Hemoglobin 12.6 g/dL (13.0-17.5) 12.2 g/dL (13.0-17.5) Hematocrit 37.0 % (39.0-53.0) 35.7 % (39.0-53.0) Mean Corpuscular Volume 82 fL (79-100) 83 fL (79-100) Mean Corpuscular Hemoglobin 28 pg (25-35) 28 pg (25-35) Mean Corpuscular Hemoglobin Concent 34 g/dL (31-37) 34 g/dL (31-37) Red Cell Distribution Width 14.7 % (11.5-14.5) 14.8 % (11.5-14.5) Platelet Count 289 x10^3/uL (140-400) 292 x10^3/uL (140-400) Neutrophils (%) (Auto) 71 % (31-73) 72 % (31-73) Lymphocytes (%) (Auto) 15 % (24-48) 17 % (24-48) Monocytes (%) (Auto) 11 % (0-9) 9 % (0-9) Eosinophils (%) (Auto) 3 % (0-3) 2 % (0-3) Basophils (%) (Auto) 1 % (0-3) 1 % (0-3) Neutrophils # (Auto) 7.9 x10^3uL (1.8-7.7) 7.8 x10^3uL (1.8-7.7) Lymphocytes # (Auto) 1.6 x10^3/uL (1.0-4.8) 1.8 x10^3/uL (1.0-4.8) Monocytes # (Auto) 1.2 x10^3/uL (0.0-1.1) 1.0 x10^3/uL (0.0-1.1) Eosinophils # (Auto) 0.3 x10^3/uL (0.0-0.7) 0.2 x10^3/uL (0.0-0.7) Basophils # (Auto) 0.1 x10^3/uL (0.0-0.2) 0.1 x10^3/uL (0.0-0.2) Sodium Level 135 mmol/L (136-145) 136 mmol/L (136-145) Potassium Level 4.3 mmol/L (3.5-5.1) 4.1 mmol/L (3.5-5.1) Chloride Level 100 mmol/L (98-107) 102 mmol/L (98-107) Carbon Dioxide Level 23 mmol/L (21-32) 25 mmol/L (21-32) Anion Gap 12 (6-14) 9 (6-14) Blood Urea Nitrogen 33 mg/dL (8-26) 26 mg/dL (8-26) Creatinine 1.8 mg/dL (0.7-1.3) 1.6 mg/dL (0.7-1.3) Estimated GFR (Cockcroft-Gault) 39.8 45.6 BUN/Creatinine Ratio 18 (6-20) 16 (6-20) Glucose Level 119 mg/dL (70-99) 151 mg/dL (70-99) Calcium Level 9.2 mg/dL (8.5-10.1) 8.7 mg/dL (8.5-10.1) Total Bilirubin 0.5 mg/dL (0.2-1.0) 0.5 mg/dL (0.2-1.0) Aspartate Amino Transf (AST/SGOT) 90 U/L (15-37) 159 U/L (15-37) Alanine Aminotransferase (ALT/SGPT) 113 U/L (16-63) 201 U/L (16-63) Alkaline Phosphatase 397 U/L (46-116) 371 U/L (46-116) Total Protein 8.0 g/dL (6.4-8.2) 7.4 g/dL (6.4-8.2) Albumin 3.2 g/dL (3.4-5.0) 2.9 g/dL (3.4-5.0) Albumin/Globulin Ratio 0.7 (1.0-1.7) 0.6 (1.0-1.7) Lipase 178 U/L (73-393) Urine Color Yellow Urine Clarity Cloudy Urine pH 5.5 Urine Specific [place] 1.015 Urine Protein Negative mg/dL (NEG-TRACE) Urine Glucose (UA) Negative mg/dL (NEG) Urine Ketones (Stick) Negative mg/dL (NEG) Urine Blood Trace (NEG) Urine Nitrite Negative (NEG) Urine Bilirubin Negative (NEG) Urine Urobilinogen Dipstick 0.2 mg/dL (0.2 mg/dL) Urine Leukocyte Esterase Large (NEG) Urine RBC Rare /HPF (0-2) Urine WBC 20-40 /HPF (0-4) Urine Squamous Epithelial Cells Occ /LPF Urine Bacteria 0 /HPF (0-FEW) Laboratory Tests Test 03/02/19 17:10 White Blood Count 10.8 x10^3/uL (4.0-11.0) Red Blood Count 4.30 x10^6/uL (4.30-5.70) Hemoglobin 12.2 g/dL (13.0-17.5) Hematocrit 35.7 % (39.0-53.0) Mean Corpuscular Volume 83 fL (79-100) Mean Corpuscular Hemoglobin 28 pg (25-35) Mean Corpuscular Hemoglobin Concent 34 g/dL (31-37) Red Cell Distribution Width 14.8 % (11.5-14.5) Platelet Count 292 x10^3/uL (140-400) Neutrophils (%) (Auto) 72 % (31-73) Lymphocytes (%) (Auto) 17 % (24-48) Monocytes (%) (Auto) 9 % (0-9) Eosinophils (%) (Auto) 2 % (0-3) Basophils (%) (Auto) 1 % (0-3) Neutrophils # (Auto) 7.8 x10^3uL (1.8-7.7) Lymphocytes # (Auto) 1.8 x10^3/uL (1.0-4.8) Monocytes # (Auto) 1.0 x10^3/uL (0.0-1.1) Eosinophils # (Auto) 0.2 x10^3/uL (0.0-0.7) Basophils # (Auto) 0.1 x10^3/uL (0.0-0.2) Sodium Level 136 mmol/L (136-145) Potassium Level 4.1 mmol/L (3.5-5.1) Chloride Level 102 mmol/L (98-107) Carbon Dioxide Level 25 mmol/L (21-32) Anion Gap 9 (6-14) Blood Urea Nitrogen 26 mg/dL (8-26) Creatinine 1.6 mg/dL (0.7-1.3) Estimated GFR (Cockcroft-Gault) 45.6 BUN/Creatinine Ratio 16 (6-20) Glucose Level 151 mg/dL (70-99) Calcium Level 8.7 mg/dL (8.5-10.1) Total Bilirubin 0.5 mg/dL (0.2-1.0) Aspartate Amino Transf (AST/SGOT) 159 U/L (15-37) Alanine Aminotransferase (ALT/SGPT) 201 U/L (16-63) Alkaline Phosphatase 371 U/L (46-116) Total Protein 7.4 g/dL (6.4-8.2) Albumin 2.9 g/dL (3.4-5.0) Albumin/Globulin Ratio 0.6 (1.0-1.7) Medications Current Medications Sodium Chloride 1,000 ml @ 1,000 mls/hr 1X ONCE IV Last administered on 03/01/19at 20:20; Start 03/01/19 at 20:00; Stop 03/01/19 at 20:59; Status DC Meclizine HCl (Antivert) 25 mg 1X ONCE PO Last administered on 03/01/19at 20:20; Start 03/01/19 at 20:00; Stop 03/01/19 at 20:04; Status DC Ceftriaxone Sodium (Rocephin) 1 gm 1X ONCE IVP Last administered on 03/01/19at 21:21; Start 03/01/19 at 21:15; Stop 03/01/19 at 21:16; Status DC Ondansetron HCl (Zofran) 4 mg 1X ONCE IV Last administered on 03/01/19at 21:30; Start 03/01/19 at 22:00; Stop 03/01/19 at 22:01; Status DC Ondansetron HCl (Zofran) 4 mg PRN Q8HRS PRN IV NAUSEA/VOMITING 1ST CHOICE; Start 03/01/19 at 21:45; Stop 03/02/19 at 21:44; Status DC Morphine Sulfate (Morphine Sulfate) 2 mg PRN Q2HR PRN IV SEVERE PAIN; Start 03/01/19 at 21:45; Stop 03/02/19 at 21:44; Status DC Sodium Chloride 1,000 ml @ 100 mls/hr Q10H IV Last administered on 03/03/19 01:56; Start 03/02/19 at 06:00 Lisinopril (Prinivil) 20 mg DAILY PO Last administered on 03/03/19 09:09; Start 03/02/19 at 14:00 Simvastatin (Zocor) 20 mg HS PO Last administered on 03/02/19 21:10; Start 03/02/19 at 21:00 Ceftriaxone Sodium (Rocephin) 1 gm Q24H IVP Last administered on 03/02/19 21:11; Start 03/02/19 at 21:00 Tamsulosin HCl (Flomax) 0.4 mg QHS PO Last administered on 03/02/19 21:10; Start 03/02/19 at 21:00 Lactobacillus Rhamnosus (Culturelle) 1 cap BID PO Last administered on 03/03/19 09:09; Start 03/02/19 at 21:00 Active Scripts Active Reported Lisinopril 20 Mg Tablet 1 Tab PO DAILY Vitals/I & O Vital Sign - Last 24 Hours 03/02/19 03/02/19 03/02/19 03/02/19 11:00 15:00 16:22 19:39 Temp 98.8 98.1 98.8 98.8 98.1 98.8 Pulse 72 82 72 76 Resp 17 17 20 B/P (MAP) 136/85 (102) 140/90 (107) 136/85 138/77 (97) Pulse Ox 94 96 94 O2 Delivery Room Air Room Air Room Air 03/02/19 03/02/19 03/03/19 03/03/19 20:00 23:45 03:44 07:00 Temp 98.6 98.4 99.2 98.6 98.4 99.2 Pulse 70 67 65 Resp 18 16 12 B/P (MAP) 133/88 (103) 98/63 (75) 114/71 (85) Pulse Ox 95 91 96 O2 Delivery Room Air Room Air Room Air Room Air 03/03/19 09:09 Pulse 65 B/P (MAP) 114/71 Intake and Output 03/02/19 03/02/19 03/03/19 14:59 22:59 06:59 Intake Total 180 ml 320 ml 200 ml Output Total 1600 ml 1750 ml Balance 180 ml -1280 ml -1550 ml FULBRIGHT,TI W MD Mar 03, 2019 10:53
--- NOTE | 2019-03-03 19:12 | NUR ---
This patient stated, "I only take a half my BP pill now maybe that is causing my dizziness, I forgot." This was adjusted per patient's request. This nurse will continue to monitor patient.
[2019-03-03] MEDS: cefTRIAXone IV Push 1 GM VIAL. IVP SCH (21:00)
[2019-03-03] MEDS: TAMSULOSIN 0.4 MG CAP.ER.24H. PO SCH (21:08)
[2019-03-03] MEDS: SIMVASTATIN 20 MG TABLET PO SCH (21:08)
[2019-03-04 03:50] VITALS: BP 134/95
[2019-03-04 03:57] LABS: BASO # 0.1 x10^3/uL (0.0-0.2); BASO % 1 % (0-3); EOS # 0.3 x10^3/uL (0.0-0.7); EOS % 3 % (0-3); HEMATOCRIT 35.9 % (39.0-53.0); HEMOGLOBIN 12.2 g/dL (13.0-17.5); LYMPH # 2.4 x10^3/uL (1.0-4.8); LYMPH % 20 % (24-48); MEAN CORPUSCULAR HEMOGLOBIN 28 pg (25-35); MEAN CORPUSCULAR HGB CONC 34 g/dL (31-37); MEAN CORPUSCULAR VOLUME 83 fL (79-100); MONO % 8 % (0-9); NEUT # 8.1 x10^3uL (1.8-7.7); NEUT % 68 % (31-73); PLATELET COUNT 300 x10^3/uL (140-400); RED BLOOD COUNT 4.31 x10^6/uL (4.30-5.70); RED CELL DISTRIBUTION WIDTH 14.7 % (11.5-14.5); WHITE BLOOD COUNT 11.9 x10^3/uL (4.0-11.0)
[2019-03-04 04:26] LABS: ALBUMIN 2.7 g/dL (3.4-5.0); ALBUMIN/GLOBULIN RATIO 0.6 (1.0-1.7); CALCIUM 8.6 mg/dL (8.5-10.1); CREATININE 1.5 mg/dL (0.7-1.3); GFR 49.1; POTASSIUM 3.8 mmol/L (3.5-5.1); TOTAL BILIRUBIN 0.4 mg/dL (0.2-1.0); TOTAL PROTEIN 7.2 g/dL (6.4-8.2)
[2019-03-04 07:30] VITALS: BP 171/96
[2019-03-04] MEDS: IV NORMAL SALINE 1000ML BAG 1,000 ML IV SCH (07:47)
[2019-03-04] MEDS: LACTOBACILLUS RHAMNOSUS GG 1 CAPSULE. PO SCH (08:46)
[2019-03-04] MEDS ORDERED: LISINOPRIL 10 MG TABLET PO SCH (09:00)
--- NOTE | 2019-03-04 09:24 | PDOC ---
PROGRESS NOTES Chief Complaint Chief Complaint Assessment/Plan urinary retention BPH. It measures 6.4 x 6.3 x 4.9 cm in transverse, craniocaudal and AP dimensions. - seen by urology transaminitis - Mild hepatomegaly with fatty infiltration of the liver. headache resolved hypertension morbid obesity UTI plan IV ROCEPHIN 1 GM Q 24 HRS admit vaughan placed urology consult hepatitis acute viral screen, acute hold statins 39 min pt exam, chart review, > 50% of time spent with exam, chart review, pt care coordination History of Present Illness History of Present Illness presented to the ER with dysuria this been ongoing for 2 days. The patient also has multiple other medical complaints. he has been having headache, abdominal pain, dizziness (he describes the room spinning), has also been running a fever but has been afebrile since Monday, and is also been having bilateral ear ringing. He also states that he's been having urinary retention and states that when he uses the past bathroom it hurts and he feels that he is not getting all of his urine out. He di have a vaughan catheter, removed. Pain free now on flomax. Treating UTI. He feels ready to discharge. Vitals Vitals Vital Signs Date Time Temp Pulse Resp B/P (MAP) Pulse Ox O2 Delivery O2 Flow Rate FiO2 03/04/19 08:47 66 171/96 03/04/19 07:30 97.9 12 97 Room Air 97.9 Physical Exam General: Alert, Oriented X3, Cooperative, No acute distress Heart: Regular rate Lungs: Clear Abdomen: Normal bowel sounds, Soft, No tenderness Extremities: No cyanosis, No edema Skin: No significant lesion Labs LABS Laboratory Tests Test 03/04/19 03:00 White Blood Count 11.9 x10^3/uL (4.0-11.0) Red Blood Count 4.31 x10^6/uL (4.30-5.70) Hemoglobin 12.2 g/dL (13.0-17.5) Hematocrit 35.9 % (39.0-53.0) Mean Corpuscular Volume 83 fL (79-100) Mean Corpuscular Hemoglobin 28 pg (25-35) Mean Corpuscular Hemoglobin Concent 34 g/dL (31-37) Red Cell Distribution Width 14.7 % (11.5-14.5) Platelet Count 300 x10^3/uL (140-400) Neutrophils (%) (Auto) 68 % (31-73) Lymphocytes (%) (Auto) 20 % (24-48) Monocytes (%) (Auto) 8 % (0-9) Eosinophils (%) (Auto) 3 % (0-3) Basophils (%) (Auto) 1 % (0-3) Neutrophils # (Auto) 8.1 x10^3uL (1.8-7.7) Lymphocytes # (Auto) 2.4 x10^3/uL (1.0-4.8) Monocytes # (Auto) 1.0 x10^3/uL (0.0-1.1) Eosinophils # (Auto) 0.3 x10^3/uL (0.0-0.7) Basophils # (Auto) 0.1 x10^3/uL (0.0-0.2) Sodium Level 140 mmol/L (136-145) Potassium Level 3.8 mmol/L (3.5-5.1) Chloride Level 105 mmol/L (98-107) Carbon Dioxide Level 25 mmol/L (21-32) Anion Gap 10 (6-14) Blood Urea Nitrogen 19 mg/dL (8-26) Creatinine 1.5 mg/dL (0.7-1.3) Estimated GFR (Cockcroft-Gault) 49.1 BUN/Creatinine Ratio 13 (6-20) Glucose Level 105 mg/dL (70-99) Calcium Level 8.6 mg/dL (8.5-10.1) Total Bilirubin 0.4 mg/dL (0.2-1.0) Aspartate Amino Transf (AST/SGOT) 64 U/L (15-37) Alanine Aminotransferase (ALT/SGPT) 164 U/L (16-63) Alkaline Phosphatase 298 U/L (46-116) Total Protein 7.2 g/dL (6.4-8.2) Albumin 2.7 g/dL (3.4-5.0) Albumin/Globulin Ratio 0.6 (1.0-1.7) Assessment and Plan Assessmemt and Plan Problems Medical Problems: (1) MUSTAPHA (acute kidney injury) Status: Acute (2) Dizziness Status: Acute (3) Elevated liver enzymes Status: Acute (4) Urinary retention Status: Acute (5) Urinary tract infection Status: Acute Comment Review of Relevant I have reviewed the following items faheem (where applicable) has been applied. Labs Laboratory Tests Test 03/02/19 17:10 03/04/19 03:00 White Blood Count 10.8 x10^3/uL (4.0-11.0) 11.9 x10^3/uL (4.0-11.0) Red Blood Count 4.30 x10^6/uL (4.30-5.70) 4.31 x10^6/uL (4.30-5.70) Hemoglobin 12.2 g/dL (13.0-17.5) 12.2 g/dL (13.0-17.5) Hematocrit 35.7 % (39.0-53.0) 35.9 % (39.0-53.0) Mean Corpuscular Volume 83 fL (79-100) 83 fL (79-100) Mean Corpuscular Hemoglobin 28 pg (25-35) 28 pg (25-35) Mean Corpuscular Hemoglobin Concent 34 g/dL (31-37) 34 g/dL (31-37) Red Cell Distribution Width 14.8 % (11.5-14.5) 14.7 % (11.5-14.5) Platelet Count 292 x10^3/uL (140-400) 300 x10^3/uL (140-400) Neutrophils (%) (Auto) 72 % (31-73) 68 % (31-73) Lymphocytes (%) (Auto) 17 % (24-48) 20 % (24-48) Monocytes (%) (Auto) 9 % (0-9) 8 % (0-9) Eosinophils (%) (Auto) 2 % (0-3) 3 % (0-3) Basophils (%) (Auto) 1 % (0-3) 1 % (0-3) Neutrophils # (Auto) 7.8 x10^3uL (1.8-7.7) 8.1 x10^3uL (1.8-7.7) Lymphocytes # (Auto) 1.8 x10^3/uL (1.0-4.8) 2.4 x10^3/uL (1.0-4.8) Monocytes # (Auto) 1.0 x10^3/uL (0.0-1.1) 1.0 x10^3/uL (0.0-1.1) Eosinophils # (Auto) 0.2 x10^3/uL (0.0-0.7) 0.3 x10^3/uL (0.0-0.7) Basophils # (Auto) 0.1 x10^3/uL (0.0-0.2) 0.1 x10^3/uL (0.0-0.2) Sodium Level 136 mmol/L (136-145) 140 mmol/L (136-145) Potassium Level 4.1 mmol/L (3.5-5.1) 3.8 mmol/L (3.5-5.1) Chloride Level 102 mmol/L (98-107) 105 mmol/L (98-107) Carbon Dioxide Level 25 mmol/L (21-32) 25 mmol/L (21-32) Anion Gap 9 (6-14) 10 (6-14) Blood Urea Nitrogen 26 mg/dL (8-26) 19 mg/dL (8-26) Creatinine 1.6 mg/dL (0.7-1.3) 1.5 mg/dL (0.7-1.3) Estimated GFR (Cockcroft-Gault) 45.6 49.1 BUN/Creatinine Ratio 16 (6-20) 13 (6-20) Glucose Level 151 mg/dL (70-99) 105 mg/dL (70-99) Calcium Level 8.7 mg/dL (8.5-10.1) 8.6 mg/dL (8.5-10.1) Total Bilirubin 0.5 mg/dL (0.2-1.0) 0.4 mg/dL (0.2-1.0) Aspartate Amino Transf (AST/SGOT) 159 U/L (15-37) 64 U/L (15-37) Alanine Aminotransferase (ALT/SGPT) 201 U/L (16-63) 164 U/L (16-63) Alkaline Phosphatase 371 U/L (46-116) 298 U/L (46-116) Total Protein 7.4 g/dL (6.4-8.2) 7.2 g/dL (6.4-8.2) Albumin 2.9 g/dL (3.4-5.0) 2.7 g/dL (3.4-5.0) Albumin/Globulin Ratio 0.6 (1.0-1.7) 0.6 (1.0-1.7) Laboratory Tests Test 03/04/19 03:00 White Blood Count 11.9 x10^3/uL (4.0-11.0) Red Blood Count 4.31 x10^6/uL (4.30-5.70) Hemoglobin 12.2 g/dL (13.0-17.5) Hematocrit 35.9 % (39.0-53.0) Mean Corpuscular Volume 83 fL (79-100) Mean Corpuscular Hemoglobin 28 pg (25-35) Mean Corpuscular Hemoglobin Concent 34 g/dL (31-37) Red Cell Distribution Width 14.7 % (11.5-14.5) Platelet Count 300 x10^3/uL (140-400) Neutrophils (%) (Auto) 68 % (31-73) Lymphocytes (%) (Auto) 20 % (24-48) Monocytes (%) (Auto) 8 % (0-9) Eosinophils (%) (Auto) 3 % (0-3) Basophils (%) (Auto) 1 % (0-3) Neutrophils # (Auto) 8.1 x10^3uL (1.8-7.7) Lymphocytes # (Auto) 2.4 x10^3/uL (1.0-4.8) Monocytes # (Auto) 1.0 x10^3/uL (0.0-1.1) Eosinophils # (Auto) 0.3 x10^3/uL (0.0-0.7) Basophils # (Auto) 0.1 x10^3/uL (0.0-0.2) Sodium Level 140 mmol/L (136-145) Potassium Level 3.8 mmol/L (3.5-5.1) Chloride Level 105 mmol/L (98-107) Carbon Dioxide Level 25 mmol/L (21-32) Anion Gap 10 (6-14) Blood Urea Nitrogen 19 mg/dL (8-26) Creatinine 1.5 mg/dL (0.7-1.3) Estimated GFR (Cockcroft-Gault) 49.1 BUN/Creatinine Ratio 13 (6-20) Glucose Level 105 mg/dL (70-99) Calcium Level 8.6 mg/dL (8.5-10.1) Total Bilirubin 0.4 mg/dL (0.2-1.0) Aspartate Amino Transf (AST/SGOT) 64 U/L (15-37) Alanine Aminotransferase (ALT/SGPT) 164 U/L (16-63) Alkaline Phosphatase 298 U/L (46-116) Total Protein 7.2 g/dL (6.4-8.2) Albumin 2.7 g/dL (3.4-5.0) Albumin/Globulin Ratio 0.6 (1.0-1.7) Medications Current Medications Sodium Chloride 1,000 ml @ 1,000 mls/hr 1X ONCE IV Last administered on 03/01/19at 20:20; Start 03/01/19 at 20:00; Stop 03/01/19 at 20:59; Status DC Meclizine HCl (Antivert) 25 mg 1X ONCE PO Last administered on 03/01/19at 20:20; Start 03/01/19 at 20:00; Stop 03/01/19 at 20:04; Status DC Ceftriaxone Sodium (Rocephin) 1 gm 1X ONCE IVP Last administered on 03/01/19at 21:21; Start 03/01/19 at 21:15; Stop 03/01/19 at 21:16; Status DC Ondansetron HCl (Zofran) 4 mg 1X ONCE IV Last administered on 03/01/19at 21:30; Start 03/01/19 at 22:00; Stop 03/01/19 at 22:01; Status DC Ondansetron HCl (Zofran) 4 mg PRN Q8HRS PRN IV NAUSEA/VOMITING 1ST CHOICE; Start 03/01/19 at 21:45; Stop 03/02/19 at 21:44; Status DC Morphine Sulfate (Morphine Sulfate) 2 mg PRN Q2HR PRN IV SEVERE PAIN; Start 03/01/19 at 21:45; Stop 03/02/19 at 21:44; Status DC Sodium Chloride 1,000 ml @ 100 mls/hr Q10H IV Last administered on 03/04/19at 07:47; Start 03/02/19 at 06:00 Lisinopril (Prinivil) 20 mg DAILY PO Last administered on 03/03/19 09:09; Start 03/02/19 at 14:00; Stop 03/03/19 at 19:12; Status DC Simvastatin (Zocor) 20 mg HS PO Last administered on 03/03/19 21:08; Start 03/02/19 at 21:00 Ceftriaxone Sodium (Rocephin) 1 gm Q24H IVP Last administered on 03/03/19 21:00; Start 03/02/19 at 21:00 Tamsulosin HCl (Flomax) 0.4 mg QHS PO Last administered on 03/03/19 21:08; Start 03/02/19 at 21:00 Lactobacillus Rhamnosus (Culturelle) 1 cap BID PO Last administered on 03/04/19 08:46; Start 03/02/19 at 21:00 Lisinopril (Prinivil) 10 mg DAILY PO Last administered on 03/04/19 08:47; Start 03/04/19 at 09:00 Active Scripts Active Reported Lisinopril 20 Mg Tablet 1 Tab PO DAILY Vitals/I & O Vital Sign - Last 24 Hours 03/03/19 03/03/19 03/03/19 03/03/19 11:00 15:00 15:00 15:00 Temp 97.5 98.0 98.0 98.0 97.5 98.0 98.0 98.0 Pulse 65 69 69 74 Resp 12 12 12 12 B/P (MAP) 138/86 (103) 140/72 (94) 131/70 (90) 139/69 (92) Pulse Ox 97 95 95 94 O2 Delivery Room Air Room Air Room Air Room Air 03/03/19 03/03/19 03/03/19 03/04/19 19:50 20:03 23:50 03:50 Temp 98.7 98.8 98.3 98.7 98.8 98.3 Pulse 74 62 81 Resp 16 16 16 B/P (MAP) 150/93 (112) 157/88 (111) 134/95 (108) Pulse Ox 95 96 100 O2 Delivery Room Air Room Air Room Air Room Air 03/04/19 03/04/19 07:30 08:47 Temp 97.9 97.9 Pulse 66 66 Resp 12 B/P (MAP) 171/96 (121) 171/96 Pulse Ox 97 O2 Delivery Room Air Intake and Output 03/03/19 03/03/19 03/04/19 14:59 22:59 06:59 Intake Total 200 ml Output Total 1150 ml 250 ml 1600 ml Balance -1150 ml -250 ml -1400 ml SWEETIE MACEDO MD Mar 04, 2019 09:24
[2019-03-04 09:26] LABS: % BANDS 1 % (0-9); % EOS 5 % (0-5); % LYMPHS 19 % (24-48); % MONOS 5 % (0-10); % SEGS 70 % (35-66); PLT ESTIMATE ADEQUATE (ADEQUATE)
[2019-03-04 11:00] VITALS: BP 139/92
[2019-03-04] MEDS ORDERED: CIPR250T PO (11:48)
[2019-03-04] MEDS ORDERED: AMLO5TAB10 PO (11:48)
[2019-03-04] MEDS ORDERED: TAMS0.4C97 PO (11:48)
--- NOTE | 2019-03-04 11:51 | PDOC3 ---
Discharge Summary Visit Information Date of Admission: Mar 01, 2019 Date of Discharge: Mar 04, 2019 Admitting Diagnosis: MUSTAPHA, UTI Final Diagnosis Problems Medical Problems: (1) MUSTAPHA (acute kidney injury) Status: Acute (2) Dizziness Status: Acute (3) Elevated liver enzymes Status: Acute (4) Urinary retention Status: Acute (5) Urinary tract infection Status: Acute Brief Hospital Course Allergies Allergies Coded Allergies Type Severity Reaction Last Updated Verified No Known Drug Allergies 03/01/19 No Vital Signs Vital Signs Date Time Temp Pulse Resp B/P (MAP) Pulse Ox O2 Delivery O2 Flow Rate FiO2 03/04/19 08:47 66 171/96 03/04/19 08:00 Room Air 03/04/19 07:30 97.9 12 97 97.9 Lab Results Laboratory Tests Test 03/02/19 17:10 03/04/19 03:00 White Blood Count 10.8 x10^3/uL (4.0-11.0) 11.9 x10^3/uL (4.0-11.0) Red Blood Count 4.30 x10^6/uL (4.30-5.70) 4.31 x10^6/uL (4.30-5.70) Hemoglobin 12.2 g/dL (13.0-17.5) 12.2 g/dL (13.0-17.5) Hematocrit 35.7 % (39.0-53.0) 35.9 % (39.0-53.0) Mean Corpuscular Volume 83 fL (79-100) 83 fL (79-100) Mean Corpuscular Hemoglobin 28 pg (25-35) 28 pg (25-35) Mean Corpuscular Hemoglobin Concent 34 g/dL (31-37) 34 g/dL (31-37) Red Cell Distribution Width 14.8 % (11.5-14.5) 14.7 % (11.5-14.5) Platelet Count 292 x10^3/uL (140-400) 300 x10^3/uL (140-400) Neutrophils (%) (Auto) 72 % (31-73) 68 % (31-73) Lymphocytes (%) (Auto) 17 % (24-48) 20 % (24-48) Monocytes (%) (Auto) 9 % (0-9) 8 % (0-9) Eosinophils (%) (Auto) 2 % (0-3) 3 % (0-3) Basophils (%) (Auto) 1 % (0-3) 1 % (0-3) Neutrophils # (Auto) 7.8 x10^3uL (1.8-7.7) 8.1 x10^3uL (1.8-7.7) Lymphocytes # (Auto) 1.8 x10^3/uL (1.0-4.8) 2.4 x10^3/uL (1.0-4.8) Monocytes # (Auto) 1.0 x10^3/uL (0.0-1.1) 1.0 x10^3/uL (0.0-1.1) Eosinophils # (Auto) 0.2 x10^3/uL (0.0-0.7) 0.3 x10^3/uL (0.0-0.7) Basophils # (Auto) 0.1 x10^3/uL (0.0-0.2) 0.1 x10^3/uL (0.0-0.2) Sodium Level 136 mmol/L (136-145) 140 mmol/L (136-145) Potassium Level 4.1 mmol/L (3.5-5.1) 3.8 mmol/L (3.5-5.1) Chloride Level 102 mmol/L (98-107) 105 mmol/L (98-107) Carbon Dioxide Level 25 mmol/L (21-32) 25 mmol/L (21-32) Anion Gap 9 (6-14) 10 (6-14) Blood Urea Nitrogen 26 mg/dL (8-26) 19 mg/dL (8-26) Creatinine 1.6 mg/dL (0.7-1.3) 1.5 mg/dL (0.7-1.3) Estimated GFR (Cockcroft-Gault) 45.6 49.1 BUN/Creatinine Ratio 16 (6-20) 13 (6-20) Glucose Level 151 mg/dL (70-99) 105 mg/dL (70-99) Calcium Level 8.7 mg/dL (8.5-10.1) 8.6 mg/dL (8.5-10.1) Total Bilirubin 0.5 mg/dL (0.2-1.0) 0.4 mg/dL (0.2-1.0) Aspartate Amino Transf (AST/SGOT) 159 U/L (15-37) 64 U/L (15-37) Alanine Aminotransferase (ALT/SGPT) 201 U/L (16-63) 164 U/L (16-63) Alkaline Phosphatase 371 U/L (46-116) 298 U/L (46-116) Total Protein 7.4 g/dL (6.4-8.2) 7.2 g/dL (6.4-8.2) Albumin 2.9 g/dL (3.4-5.0) 2.7 g/dL (3.4-5.0) Albumin/Globulin Ratio 0.6 (1.0-1.7) 0.6 (1.0-1.7) Hepatitis A IgM Antibody Nonreactive (Nonreactive) Hepatitis B Surface Antigen Nonreactive (Nonreactive) Hepatitis B Core IgM Antibody Nonreactive (Nonreactive) Hepatitis C IgG Antibody Nonreactive (Nonreactive) Segmented Neutrophils % 70 % (35-66) Band Neutrophils % 1 % (0-9) Lymphocytes % 19 % (24-48) Monocytes % 5 % (0-10) Eosinophils % 5 % (0-5) Platelet Estimate Adequate (ADEQUATE) Laboratory Tests Test 03/04/19 03:00 White Blood Count 11.9 x10^3/uL (4.0-11.0) Red Blood Count 4.31 x10^6/uL (4.30-5.70) Hemoglobin 12.2 g/dL (13.0-17.5) Hematocrit 35.9 % (39.0-53.0) Mean Corpuscular Volume 83 fL (79-100) Mean Corpuscular Hemoglobin 28 pg (25-35) Mean Corpuscular Hemoglobin Concent 34 g/dL (31-37) Red Cell Distribution Width 14.7 % (11.5-14.5) Platelet Count 300 x10^3/uL (140-400) Neutrophils (%) (Auto) 68 % (31-73) Lymphocytes (%) (Auto) 20 % (24-48) Monocytes (%) (Auto) 8 % (0-9) Eosinophils (%) (Auto) 3 % (0-3) Basophils (%) (Auto) 1 % (0-3) Neutrophils # (Auto) 8.1 x10^3uL (1.8-7.7) Lymphocytes # (Auto) 2.4 x10^3/uL (1.0-4.8) Monocytes # (Auto) 1.0 x10^3/uL (0.0-1.1) Eosinophils # (Auto) 0.3 x10^3/uL (0.0-0.7) Basophils # (Auto) 0.1 x10^3/uL (0.0-0.2) Segmented Neutrophils % 70 % (35-66) Band Neutrophils % 1 % (0-9) Lymphocytes % 19 % (24-48) Monocytes % 5 % (0-10) Eosinophils % 5 % (0-5) Platelet Estimate Adequate (ADEQUATE) Sodium Level 140 mmol/L (136-145) Potassium Level 3.8 mmol/L (3.5-5.1) Chloride Level 105 mmol/L (98-107) Carbon Dioxide Level 25 mmol/L (21-32) Anion Gap 10 (6-14) Blood Urea Nitrogen 19 mg/dL (8-26) Creatinine 1.5 mg/dL (0.7-1.3) Estimated GFR (Cockcroft-Gault) 49.1 BUN/Creatinine Ratio 13 (6-20) Glucose Level 105 mg/dL (70-99) Calcium Level 8.6 mg/dL (8.5-10.1) Total Bilirubin 0.4 mg/dL (0.2-1.0) Aspartate Amino Transf (AST/SGOT) 64 U/L (15-37) Alanine Aminotransferase (ALT/SGPT) 164 U/L (16-63) Alkaline Phosphatase 298 U/L (46-116) Total Protein 7.2 g/dL (6.4-8.2) Albumin 2.7 g/dL (3.4-5.0) Albumin/Globulin Ratio 0.6 (1.0-1.7) Brief Hospital Course Mr. Proctor 53 yo occitan speaking male, presented to ER 03/02/19 with dysuria, abdominal pain, dizziness, worsening over the past 3-5 days. He reports fever 3 days ago but none since. UA consistent with UTI - found with < 10K CFU gram negative rods on final culture. He denies previous UTIs. He reports slow urinary stream but not very bothersome. Dang placed in ER, residual 170 ml. No prior BPH diagnosis. He reports PSA of 2.5 in [place] in late 2018. CT this admission: prostate measures 103 gm. Seen by urology, passed voiding trial once started on flomax. Had elevated transaminases which improved with IVF, antibiotics, monitoring. Hepatitis panel negative. Discharged with antibiotics and flomax and f/u with PCP in [place], [place]. D/w his son over the phone urinary retention BPH. It measures 6.4 x 6.3 x 4.9 cm in transverse, craniocaudal and AP dimensions. - seen by urology transaminitis - Mild hepatomegaly with fatty infiltration of the liver. headache resolved hypertension morbid obesity UTI MUSTAPHA - vasomotor nephropathy Greater than 30 minutes spent on discharge. Discharge Information Condition at Discharge: Improved Follow Up: Weeks (2) Disposition/Orders: D/C to Home Scheduled Amlodipine Besylate (Amlodipine Besylate) 5 Mg Tablet, 5 MG PO DAILY for HTN for 30 Days, #30 Ref 2 Prescribed by: SWEETIE MACEDO MD on 03/04/19 1148 Ciprofloxacin Hcl (Ciprofloxacin Hcl) 250 Mg Tablet, 1 TAB PO BID for UTI for 14 Days, #28 Prescribed by: SWEETIE MACEDO MD on 03/04/19 1148 Tamsulosin Hcl (Flomax) 0.4 Mg Cap.er.24h, 0.4 MG PO QHS for BPH for 30 Days, #30 Ref 11 Prescribed by: SWEETIE MACEDO MD on 03/04/19 1148 Discontinued Medications Lisinopril (Lisinopril) 20 Mg Tablet, 1 TAB PO DAILY for htn, #30 Ref 5 (Reported) Entered as Reported by: ALVIN PENDLETON on 03/02/191321 Last Action: Continued on 03/02/19 1324 by ALVIN PENDLETON Simvastatin (Simvastatin) 20 Mg Tablet, 1 TAB PO QHS for high chl, #30 Ref 5 (Reported) Entered as Reported by: ALVIN PENDLETON on 03/02/192 Last Action: Discontinued on 03/02/19 1352 by MD REMINGTON PEARCE,SWEETIE Fitzgerald MD Mar 04, 2019 11:50
--- NOTE | 2019-03-04 14:05 | NUR ---
Discharge: Pt DC to home accompanied by family friends per private car. Left with belongings, DC instructions, rx's for cipro, norvasc, and flomax. Follow up instructions and education translated with help from [employer]. No concerns.
== END 2019-03-04 13:39 | disposition home or self-care (01) | DRG 689 ==
LOC: ER 17:54 → 6 SOUTH 21:29
PROVIDERS: ADMIT Internal Medicine; ATTEND Internal Medicine
DX: N39.0 Urinary tract infection, site not specified (principal); N17.0 Acute kidney failure with tubular necrosis; E78.5 Hyperlipidemia, unspecified; Z79.899 Other long term (current) drug therapy; R33.8 Other retention of urine; K76.0 Fatty (change of) liver, not elsewhere classified; E66.01 Morbid (severe) obesity due to excess calories; I10 Essential (primary) hypertension; Z68.33 Body mass index [BMI] 33.0-33.9, adult; N40.1 Benign prostatic hyperplasia with lower urinary tract symptoms
CPT/HCPCS: 36415; 51702; 74176; 76705; 80053; 81001; 83690; 85007; 85025; 86705; 86709; 86803; 87086; 87340; 96361; 96374; 96375; J0696; J2405; J7030; J8597; 99285-25